=== PATIENT | male | born 1950 | race Caucasian/White ===

== ENCOUNTER 2016-07-16 08:04 | Day surgery (SDC) | payer OTHER ==
[~2016-07-16] VITALS: Ht 182.9 cm; Wt 111.0 kg
[~2016-07-16 08:04] MED LIST: ALFU10TA11 PO; ASPI-973 PO; CETI-343 PO; HYDR-4003 PO; LIP40 PO; LISI40TA PO; METF-496 PO; OMEG300C3 PO; PIOG30TA26 PO; RANI150C4 PO; SILD50TA PO; TADA10TA PO; UBID100C25 PO
[2016-07-16] MEDS ORDERED: Ketamine 10 mg/mL 20 mL Inj ONE (08:05)
[2016-07-16] MEDS ORDERED: fentaNYL-PF 50 mCg/mL 2 mL Inj ONE (08:05)
--- NOTE | 2016-07-16 08:21 | PCM.HPANE ---
Patient Data Surgeon Admitting Provider: Attending Provider:Vernell Mcgovern MD Primary Care Physician:Lucinda Antonio MD Other Provider:Rod Quezada Anesthesia Reason for Visit Fhx Colon Cancer Ht/WT & BMI Body Mass Index Allergies Coded Allergies: cephalexin (Verified Allergy, Intermediate, RASH, 07/16/16) Contrast Media (Verified Allergy, Mild, RASH- IPV DYE, RESPONDED TO BENADRYL, 07/16/16) Past Anesthesia History Anesthesia History: Denies:: Abnormal Airway, Difficult Intubation Diabetes History Hx Diabetes?: Yes Type of Diabetes: Type II Medications Hypertension Medication: No Home Meds Incl Beta Estela: No Reported Medications Ranitidine 150 Mg Hrmolep310 Mg PO DAILY Ref 0 07/15/16 Pioglitazone 30 Mg Tqnzih38 Mg PO DAILY Ref 0 07/15/16 Metformin ER 1,000 Mg Tablet1,000 Mg PO DAILY Ref 0 07/15/16 Lisinopril 40 Mg Ruczee86 Mg PO DAILY 30 Days Ref 0 07/15/16 Hydrocodone-Acetaminophen 5-325 mg 1 Each Tablet1 Tablet PO Q4H PRN For Pain Ref 0 07/15/16 Letha-3 Fatty Acids (Fish Oil)300 Mg Avctfmk198 Mg PO DAILY 07/15/16 Ubidecarenone (Co Q-10)100 Mg Masjpsx057 Mg PO DAILY 07/15/16 Tadalafil (Cialis)10 Mg Uddqya56 Mg PO PRN PRN ERECTILE DYSFUNCTION Ref 0 As directed by physician 07/15/16 Cetirizine HCl (24Hour Allergy)10 Mg Uapqet04 Mg PO DAILY 07/15/16 Atorvastatin (Lipitor)40 Mg Lqgiqz96 Mg PO DAILY Ref 0 07/15/16 Aspirin 81 Mg Nbwxto06 Mg PO DAILY Ref 0 07/15/16 Alfuzosin ER 10 Mg Tab.er.24h10 Mg PO DAILY 07/15/16 Discontinued Reported Medications Sildenafil Citrate (Viagra)50 Mg Yhrxfj82 Mg PO UD PRN ERECTILE DYSFUNCTION Ref 0 07/15/16 History HEENT History: Denies:: Abnormal Airway Difficult Intubation Cardiovascular History: Positive for:: Coronary Artery Disease (STENTS 1906) Hx of Respiratory Problem?: Yes Hx Neurologic Problems?: Yes Hx of GI Problems?: Yes Hx of Problems?: No HX of Peritoneal Dialysis: No Male Hx: Denies:: Prostate Problems Hx Musculoskeletal Problems?: No Hx of Psycho/Social Problems?: No Stop/Bang Treated for Sleep Apnea?: Yes Do You Have a CPAP Machine?: Yes LEE Risk Assessment: High Risk, =/>3 Yes Risk Assessment Category Category 1A: Patient has history of documented sleep apnea, and HAS NOT received any narcotic, sedative or anesthesia administration during this stay. Category 1B: Patient has history of documented sleep apnea, and HAS received any narcotic , sedative or anesthesia administration during this stay Category 2: Patient has SUSPECTED Obstructive Sleep Apnea, and HAS received any narcotic , sedative or anesthesia administration during this stay. Category 3: Patient has SUSPECTED Obstructive Sleep Apnea and HAS NOT received narcotic, sedative or anesthesia administration during this stay. Category 4: Outpatient in Procedural Areas with known sleep apnea or who screen positive for High Risk via the STOP/BANG questionnaire. Exam Exam General Appearance: Alert, Oriented X3, Cooperative, No Acute Distress HEENT/AIRWAY: MP 2 Lungs: Clear to Auscultation, Normal Air Movement Heart: Exam Unremarkable, Regular Rate/Rhythm, No Murmurs/Rubs/Gallops Plan Impression Patient chart reviewed, patient interviewed and anesthestic plan with risks, benefits, and alternatives discussed, and informed consent obtained. ASA Physical Status: ASA3 Severe Disease Anesthetic Plan: MAC Bene/Risks/Altern/Consents: Yes HP Complete Prior to Induction: Yes Benigno Zamora MD Jul 16, 2016 08:21
[2016-07-16 08:30] VITALS: BP 130/76; PULSE 63; RESP 16; O2SAT 98
[2016-07-16] MEDS ORDERED: Lactated Ringer's 1,000 ML IV ONE (09:08)
[2016-07-16] MEDS ORDERED: Lactated Ringer's 1,000 ML IV SCH (09:12)
[2016-07-16] MEDS ORDERED: MetoCLOpramide 5 mg/mL 2 mL Inj IVPUSH PRN (09:15)
[2016-07-16] MEDS ORDERED: Ondansetron 2 mg/mL 2 mL Inj IVPUSH PRN (09:15)
[2016-07-16 09:36] VITALS: BP 120/75; PULSE 58; RESP 16; O2SAT 90
[2016-07-16 09:45] VITALS: BP 139/80; PULSE 58; RESP 16; O2SAT 92
[2016-07-16 09:55] VITALS: BP 138/80; PULSE 69; RESP 16; O2SAT 94
--- NOTE | 2016-07-16 09:55 | ENDO ---
[address] [address] ENDOSCOPY PROCEDURE PATIENT: MYRNA MILIAN : 1950 MR#: [id number] ADMIT: 07/16/2016 JOB ID: [id number] DATE: PROCEDURE: Colonoscopy. INDICATIONS: Family history of colon cancer. ASA CLASSIFICATION, MALLAMPATI SCORE, MEDICATIONS: As per Dr. Benigno Zamora's anesthesia report. INSTRUMENT USED: PCF H 180 AL. PREP QUALITY: Good. PROCEDURE DETAILS: After informed consent was obtained, the patient was brought to the GI suite, where he was placed on oxygen via nasal cannula and monitored with continuous pulse oximeter, telemetry and blood pressure monitoring. A time-out was performed. Then, he was placed in a left lateral decubitus position and medications were administered for sedation. A digital rectal exam with palpation of the prostate was performed, which was unremarkable. The colonoscope was then inserted into the rectum and advanced under direct visualization to the cecum, which was identified by the presence of the ileocecal valve and appendiceal orifice. Once the cecum was reached, the colonoscope was withdrawn back into the rectum and the mucosa and lumen were examined. In the rectum, retroflexion was performed. Following retroflexion, remaining air in the rectum was suctioned, and procedure was completed. FINDINGS: 1. In the descending colon, there was a diminutive polyp that was removed by cold biopsy forceps. 2. Just proximal to this there was an approximately 4-5 mm sessile polyp that was removed with a cold snare. 3. Retroflexed views in the rectum were unremarkable. IMPRESSION: Two descending colon polyps. RECOMMENDATIONS: Repeat colonoscopy in five years. COMPLICATIONS: None. ESTIMATED BLOOD LOSS: Less than 5 mL.
[2016-07-16 10:05] VITALS: BP 109/54; PULSE 61; RESP 16; O2SAT 95
[2016-07-16 10:15] VITALS: BP 136/76; PULSE 56; RESP 16; O2SAT 97
--- NOTE | 2016-07-16 14:06 | PCM.ANEP1 ---
Post Anesthesia Phase 1 PACU Phase 1 Assessment Vital Signs Vital Signs Date Time Temp Pulse Resp B/P Pulse Ox O2 Delivery O2 Flow Rate FiO2 07/16/16 10:15 56 16 136/76 97 Room Air 07/16/16 10:05 61 16 109/54 95 Room Air 07/16/16 09:55 69 16 138/80 94 Room Air 07/16/16 09:45 58 16 139/80 92 Room Air 07/16/16 09:36 58 16 120/75 90 Room Air 07/16/16 08:30 36.8 63 16 130/76 98 Room Air Anesthetic Administered: MAC Level of Alertness: Awake, talking HIGUERA's with Equal Strength: Yes Pain: No Nausea or Vomiting: No Oxygen Delivery: Nasal Cannula Lungs: Clear to Auscultation, Normal Air Movement Dermatome Level: Full Sensation Benigno Zamora MD Jul 16, 2016 14:06
--- NOTE | 2016-07-16 14:06 | PCM.ANEP2 ---
Post Anesthesia Evaluation ASA/CMS Post Anesthesia VS in Patient's Normal Range?: Yes Resp Stable; Airway Patent?: Yes CV Function & Hydration Stable: Yes Mental Status Recovered?: Yes Pain control Satisfactory?: Yes N/V Control Satisfactory?: Yes Benigno Zamora MD Jul 16, 2016 14:06
--- NOTE | 2016-07-17 15:11 | PATH ---
SURGICAL PATHOLOGY Attending Physician:Lilia Eason CASE STATUS: Signed Out PATIENT NAME: MYRNA MILIAN PID: [id number] : 1950 DATE COLLECTED:07/16/2016 16:17 SPECIMEN: Colon, Biopsy CLINICAL HISTORY: A: DESCENDING COLON POLYP X2 FINAL DIAGNOSIS: 1.DESCENDING COLON POLYPS: TUBULAR ADENOMA, ONE. HYPERPLASTIC POLYP, ONE. ICD10 CODE D12.4 K63.5 GROSS DESCRIPTION: The specimen is received in one formalin filled container labeled with the patient's name, sublabeled "descending colon polyp" and consists of 2 portions of tissue which aggregate to 0.7 x 0.6 x 0.4 CM. The specimen is entirely submitted in one cassette. 07/16/2016 [facility] MICRO DESCRIPTION: See diagnosis. ICD-9 CODES: CPT CODES: 1: 23328 Electronically Signed Out Trina Keane MD [facility] [address], [place] [address] Technical component performed at [facility], [facility] [address], [place], [address]
== END 2016-07-16 23:59 | disposition home or self-care (01) ==
LOC: END 08:04
PROVIDERS: ATTEND Internal Medicine Gastroenterology
DX: Z12.11 Encounter for screening for malignant neoplasm of colon (principal); D12.4 Benign neoplasm of descending colon; Z80.0 Family history of malignant neoplasm of digestive organs; K63.5 Polyp of colon; Z86.010 Personal history of colon polyps; Z87.891 Personal history of nicotine dependence; E11.9 Type 2 diabetes mellitus without complications; Z79.84 Long term (current) use of oral hypoglycemic drugs; Z79.82 Long term (current) use of aspirin; I25.10 Atherosclerotic heart disease of native coronary artery without angina pectoris; Z95.5 Presence of coronary angioplasty implant and graft
CPT/HCPCS: 45380; 45385; J2250; J7120